=== PATIENT | female | born 1930 | race Asian ===

== ENCOUNTER 2017-01-18 18:32 | Emergency (ER) | payer OTHER ==
[~2017-01-18] VITALS: Ht 139.7 cm; Wt 40.8 kg
[2017-01-18 18:43] VITALS: BP 131/65
== END 2017-01-18 20:30 | disposition left against medical advice (07) ==
LOC: EDSEX 18:44 → ER 18:44
DX: R19.7 Diarrhea, unspecified (principal); M25.511 Pain in right shoulder; M79.604 Pain in right leg; Z53.21 Procedure and treatment not carried out due to patient leaving prior to being seen by health care provider

== ENCOUNTER 2017-07-07 22:50 | Inpatient (IN) | payer OTHER ==
[~2017-07-07] VITALS: Ht 142.2 cm; Wt 38.9 kg
[2017-07-08 00:15] LABS: Basophils # (auto) 0 uL; Basophils % (auto) 0.5 % (0.0-2.0); Eosinophils # (auto) 0.2 uL; Eosinophils % (auto) 2.6 % (0.0-7.0); Hematocrit 33.4 % (36.0-46.0); Hemoglobin 11.1 g/dL (12.2-16.2); Mean Corpuscular Hemoglobin 30.9 pg (28.0-32.0); Mean Corpuscular Hgb Conc. 33.2 g/dL (32.0-36.0); Mean Corpuscular Volume 93.1 fL (80.0-100.0); Monocytes # (auto) 0.7 uL; Monocytes % (auto) 9.8 % (0.0-12.0); Neutrophils # (auto) 3.9 uL; Neutrophils % (auto) 58.1 % (37.0-80.0); Platelet Count (auto) 220 10^3/uL (140-450); Red Blood Cells 3.58 10^6/uL (4.0-5.20); Red Cell Distribution Width 14.2 % (11.8-14.3); White Blood Cell 6.7 10^3/uL (4.4-10.8)
[2017-07-08 00:28] LABS: INR 0.95 (0.9-1.15); Partial Thromboplastin Time 27.9 sec (22.64-33.71); Prothrombin Time 10.3 sec (9.37-12.3)
[2017-07-08 00:37] LABS: Albumin 3.5 g/dL (3.4-5.0); BUN/Creatinine Ratio 18.4; Calcium 9.1 mg/dL (8.5-10.1); Magnesium 2.6 mg/dL (1.6-2.6); Potassium 4.2 mmol/L (3.5-5.1)
[2017-07-08 00:39] LABS: Bilirubin, Total 0.3 mg/dL (0.2-1.0); Total Protein 7.5 g/dL (6.4-8.2)
[2017-07-08 01:41] LABS: Urine Bacteria NONE SEEN /hpf (None Seen); Urine Blood Negative /uL (Negative); Urine Specific Gravity 1.003 (1.001-1.035); Urine WBC <1 /hpf (0 - 5)
[2017-07-08] MEDS ORDERED: NITROGLYCERIN 0.4 MG SL TAB SL PRN (07:15)
[2017-07-08] MEDS ORDERED: HYDROcodone-ACET 5/325MG TAB PO PRN (07:15)
[2017-07-08] MEDS ORDERED: MORPHINE SULFATE 10 MG/ML INJ 1ML SDV IV PRN (07:15)
[2017-07-08] MEDS ORDERED: ACETAMINOPHEN 325 MG TAB PO PRN (07:15)
[2017-07-08] MEDS ORDERED: ALBUTEROL SULF 2.5 MG/0.5ML(0.5%) NEB SOLN NEB PRN (07:15)
[2017-07-08] MEDS ORDERED: TEMAZEPAM 15 MG CAP PO PRN (07:15)
[2017-07-08] MEDS ORDERED: ONDANSETRON HCL 4 MG/2 ML VIAL IV PRN (07:15)
[2017-07-08 08:53] VITALS: BP 145/72
[2017-07-08] MEDS: amLODIPine BESYLATE 5 MG TAB PO SCH (11:15)
[2017-07-08] MEDS: FAMOTIDINE 20 MG TAB PO SCH ×2 (11:15→21:24)
[2017-07-08] MEDS: ASPirin 81 mg TAB PO SCH (11:15)
[2017-07-08] MEDS: ENOXAPARIN SOD 40 MG/0.4 ML SYRINGE SC SCH (11:16)
[2017-07-08] MEDS ORDERED: LORA-654 PO (11:26)
[2017-07-08] MEDS ORDERED: LEVO-28 PO (11:26)
[2017-07-08] MEDS ORDERED: OXYB15TA12 PO (11:26)
[2017-07-08] MEDS ORDERED: ACET30TA15 PO (11:26)
[2017-07-08] MEDS ORDERED: AML5T PO (11:26)
[2017-07-08] MEDS ORDERED: SIMV-8 PO (11:26)
[2017-07-08] MEDS ORDERED: DONE10TA40 PO (11:26)
[2017-07-08] MEDS ORDERED: MELO1TAB73 PO (11:26)
[2017-07-08] MEDS ORDERED: ROPI0.5T PO (11:26)
[2017-07-08 13:00] VITALS: BP 125/58
[2017-07-08 17:00] VITALS: BP 138/60
[2017-07-08] MEDS: DONEPEZIL HYDROCHLORIDE 5 MG TAB PO SCH (21:24)
[2017-07-08 22:00] VITALS: BP 136/68
[2017-07-09 01:14] VITALS: BP 135/68
[2017-07-09 05:01] VITALS: BP 127/79
[2017-07-09 08:00] VITALS: BP 147/52
[2017-07-09] MEDS ORDERED: IOHEXOL 350 MG/ML 100ML IJ ONE (08:06)
[2017-07-09] MEDS: ASPirin 81 mg TAB PO SCH (10:08)
[2017-07-09] MEDS: FAMOTIDINE 20 MG TAB PO SCH ×2 (10:09→21:42)
[2017-07-09] MEDS: amLODIPine BESYLATE 5 MG TAB PO SCH (10:09)
[2017-07-09] MEDS: ENOXAPARIN SOD 40 MG/0.4 ML SYRINGE SC SCH (10:10)
[2017-07-09] MEDS ORDERED: SODIUM CHLORIDE 0.9% 500 ML IV ONE (11:30)
[2017-07-09 11:56] LABS: Basophils # (auto) 0 uL; Basophils % (auto) 0.8 % (0.0-2.0); Eosinophils # (auto) 0.2 uL; Eosinophils % (auto) 2.7 % (0.0-7.0); Hematocrit 37.9 % (36.0-46.0); Hemoglobin 12.7 g/dL (12.2-16.2); Lymphocytes # (auto) 1.5 uL; Lymphocytes % (auto) 26.6 % (10.0-50.0); Mean Corpuscular Hemoglobin 30.9 pg (28.0-32.0); Mean Corpuscular Hgb Conc. 33.4 g/dL (32.0-36.0); Mean Corpuscular Volume 92.3 fL (80.0-100.0); Monocytes # (auto) 0.6 uL; Monocytes % (auto) 10.2 % (0.0-12.0); Neutrophils # (auto) 3.4 uL; Neutrophils % (auto) 59.7 % (37.0-80.0); Nucleated Red Blood Cells % 0.2 %; Platelet Count (auto) 206 10^3/uL (140-450); Red Blood Cells 4.11 10^6/uL (4.0-5.20); Red Cell Distribution Width 14.1 % (11.8-14.3); White Blood Cell 5.7 10^3/uL (4.4-10.8)
[2017-07-09 11:59] LABS: Albumin 3.3 g/dL (3.4-5.0); BUN/Creatinine Ratio 21.8; Bilirubin, Total 0.5 mg/dL (0.2-1.0); Calcium 8.4 mg/dL (8.5-10.1); Potassium 4.3 mmol/L (3.5-5.1); Total Protein 7.4 g/dL (6.4-8.2)
[2017-07-09 16:14] VITALS: BP 120/33
[2017-07-09 21:36] VITALS: BP 130/44
[2017-07-09] MEDS: DONEPEZIL HYDROCHLORIDE 5 MG TAB PO SCH (21:42)
[2017-07-10 05:13] VITALS: BP 124/56
[2017-07-10 08:03] VITALS: BP 115/53
[2017-07-10] MEDS: ASPirin 81 mg TAB PO SCH (09:31)
[2017-07-10] MEDS: ENOXAPARIN SOD 40 MG/0.4 ML SYRINGE SC SCH (09:31)
[2017-07-10] MEDS: FAMOTIDINE 20 MG TAB PO SCH (09:31)
[2017-07-10 13:00] VITALS: BP 118/57
[2017-07-10 16:44] VITALS: BP 120/54
[2017-07-10 17:37] VITALS: BP 125/58
== END 2017-07-10 18:10 | disposition home or self-care (01) | DRG 191 ==
LOC: ER 22:50 → EDBD 22:50 → TELE 22:51 → TELE-WESTW 07-08 10:34
PROVIDERS: ADMIT Nurse Practitioner; ATTEND Family Medicine
DX: J44.1 Chronic obstructive pulmonary disease with (acute) exacerbation (principal); J90 Pleural effusion, not elsewhere classified; F03.90 Unspecified dementia, unspecified severity, without behavioral disturbance, psychotic disturbance, mood disturbance, and anxiety; R07.9 Chest pain, unspecified; I10 Essential (primary) hypertension
CPT/HCPCS: 36415; 71045; 71275; 80053; 81001; 83735; 83880; 84443; 84484; 85025; 85379; 85610; 85730; 93005; 93306; 93970